=== PATIENT | male | born 1980 | race Caucasian/White ===

== ENCOUNTER 2017-07-23 16:16 | Emergency (ER) | payer SELFPAY ==
[2017-07-23] MEDS ORDERED: Tetan/Diph/Pertus SYR(Tdap)* 0.5 ML SYR(BOOSTRIX) use SYR IM ONE (16:52)
--- NOTE | 2017-07-23 17:44 | ED ---
Upper Extremity Pain - HPI Summary HPI Summary: Lt hand dominant pt here w/ Rt index finger laceration while working on car tonight - cut finger on a trailer hitch. Was bleeding but now controlled with pressure and elevation. Denies numbness, tingling, weakness. Unsure of last tetanus vaccine. No pain at this time - did not take anything prior to arrival. - History of Current Complaint Chief Complaint: EDLacSutureRecheck Stated Complaint: RT FINGER LAC Time Seen by Provider: 07/23/17 16:45 Hx Obtained From: Patient - Allergies/Home Medications Allergies/Adverse Reactions: Allergies Allergy/AdvReac Type Severity Reaction Status Date / Time No Known Allergies Allergy Verified 07/23/17 16:36 PMH/Surg Hx/FS Hx/Imm Hx Previously Healthy: Yes Endocrine/Hematology History: Denies: Hx Anticoagulant Therapy, Hx Blood Disorders, Autoimmune Disease Infectious Disease History: No Infectious Disease History: Denies: Traveled Outside the [place] in Last 30 Days - Family History Known Family History: Positive: Cardiac Disease - mom- CABG; dad - stents - Social History Occupation: Employed Full-time Lives: With Family Alcohol Use: Rare Hx Substance Use: No Substance Use Type: Reports: None Hx Tobacco Use: No Smoking Status (MU): Never Smoked Tobacco Review of Systems Musculoskeletal: Negative Negative: Arthralgia, Myalgia, Decreased ROM, Edema Skin: Other - see HPI Neurological: Negative Psychological: Normal All Other Systems Reviewed And Are Negative: Yes Physical Exam Triage Information Reviewed: Yes Vital Signs On Initial Exam: Initial Vitals Temp Pulse Resp BP Pulse Ox 98.5 F 88 16 163/115 98 07/23/17 16:35 07/23/17 16:35 07/23/17 16:35 07/23/17 16:35 07/23/17 16:35 Vital Signs Reviewed: Yes Appearance: Positive: Well-Appearing, No Pain Distress, Well-Nourished Skin: Positive: Warm, Dry - 1.5cm x 4mm linear lac over Rt dorsal index finger Eyes: Positive: EOMI ENT: Positive: Hearing grossly normal Respiratory/Lung Sounds: Positive: Breath Sounds Present Cardiovascular: Positive: Pulses are Symmetrical in both Upper and Lower Extremities Musculoskeletal: Positive: Normal, Strength/ROM Intact Neurological: Positive: Normal, Sensory/Motor Intact, Alert, Oriented to Person Place, Time, CN Intact II-III Psychiatric: Positive: Normal - appears calm but reports he doesn't like needles - Jessica Coma Scale Coma Scale Total: 15 Procedures - Laceration/Wound Repair 1 Location: upper extremity - Rt index finger Description: Linear Anesthesia: Local, Lido Length, Depth and Shape: 1.5cm x 4mm Betadine Prep?: Yes Irrigated w/ Saline (ccs): 250 Laceration/Wound Explored: clean Closure: Single Layer Suture Type: Nylon - 5-0 Number of Sutures: 3 Layer Closure?: No Sterile Dressing Applied?: Yes - triple anbx + gauze + coban + splint Diagnostics - Vital Signs Vital Signs Temp Pulse Resp BP Pulse Ox 07/23/17 16:35 98.5 F 88 16 163/115 98 - Laboratory Lab Statement: Any lab studies that have been ordered have been reviewed, and results considered in the medical decision making process. Re-Evaluation - Re-Evaluation First Eval Change: Improved - N/V pre/post intact Course/Dx - Course Course Of Treatment: Does not appear to have FB, bony involvement or tendon lac - radiology report reviewed and agree. Discussed wound care w/ pt and - danger s/sx of when to return to ED. Pt agrees w/ plan. NOTE: pt's initial BP was 163/115 - asx. No reported h/o HTN. Pt is nervous about having therapies tonight with needles and BP improved to 150/99 at end of visit. Explained this is still elevated and he needs f/u w/ PCP to reassess. If WNL, may have been "white coat HTN" however encouraged pt to work on stress reduction techniques as BP's in this range may result in CVA, AK and end organ damage if present repeatedly/chronically. Pt agrees w/ plan. - Diagnoses Provider Diagnoses: Laceration of right index finger Discharge - Discharge Plan Condition: Stable Disposition: HOME Prescriptions: Cephalexin CAP* [Keflex CAP*] 500 mg PO BID #9 cap Patient Education Materials: Finger Laceration (ED), Hypertension (ED) Referrals: Akira Gutierrez MD [Primary Care Provider] - Additional Instructions: Keep dressing clean, dry and in place for 48 hours. After this time, you may remove to gently wash daily with soap and water - rinse well and pat dry with clean cloth then reapply triple antibiotic ointment and dressing - replace splint to avoid flexing finger and opening sutures. Rest, ice, elevate for pain , swelling. You may also take ibuprofen with food for pain. Follow-up with PCP in 10 days for wound check and suture removal. *If you develop redness, swelling, streaking, purulent drainage, fever, chills, seek medical attentions sooner.
--- NOTE | 2017-07-23 18:39 | RAD ---
Indication: Laceration over the dorsal aspect of the proximal interphalangeal joint right index finger. 3 views of the right index finger demonstrates no fracture. No other bone or joint abnormality is identified. IMPRESSION: No bony involvement is noted. No foreign body is identified.
[2017-07-23] MEDS ORDERED: Cephalexin CAP* 500 MG PO ONE (20:09)
[2017-07-23] MEDS: Cephalexin CAP* 500 MG PO ONE ×2 (20:20→21:07)
[2017-07-23 21:06] VITALS: BP 150/99
== END 2017-07-23 21:03 | disposition home or self-care (01) ==
LOC: ED 16:16
DX: S61.210A Laceration without foreign body of right index finger without damage to nail, initial encounter (principal); W45.8XXA Other foreign body or object entering through skin, initial encounter; Y93.89 Activity, other specified; Y92.9 Unspecified place or not applicable
CPT/HCPCS: 12001; 73140; 90471; 90715; 99282; A9270-GY